=== PATIENT | female | born 1950 | race Caucasian/White ===

== ENCOUNTER 2017-01-23 05:44 | Day surgery (SDC) | payer OTHER ==
[2017-01-22 15:38] VITALS: BMI 40.3
[2017-01-23] VITALS (8 sets, daily range): BP systolic 91–143; BP diastolic 51–75; PULSE 53–66; RESP 16–43; Ht 157.5 cm; Wt 101.5 kg
[~2017-01-23] VITALS: Ht 157.5 cm; Wt 101.5 kg
[~2017-01-23 05:44] MED LIST: ASPI-664 PO; CHOL100062 PO; HYD25 PO; LOSARTAN POTASSIUM PO
[2017-01-23] MEDS ORDERED: LOSA25TA5 PO (06:49)
[2017-01-23] MEDS ORDERED: BUPIVACAINE 0.25% (MPF) 30 ML INJ ONE (06:52)
[2017-01-23] MEDS ORDERED: MUPIROCIN 2% 15 GM CR ONE (06:53)
[2017-01-23] MEDS ORDERED: GENTAMICIN 80 MG INJ ONE (06:53)
[2017-01-23] MEDS ORDERED: CEFAZOLIN 1 GM INJ ONE (07:00)
[2017-01-23] MEDS ORDERED: CEFAZOLIN 2 GM/50 ML (PMX) 50 ML IVPB SCH (07:00)
[2017-01-23] MEDS ORDERED: LACTATED RINGER'S 1,000 ML IV* SCH (07:00)
[2017-01-23] MEDS ORDERED: MIDAZOLAM 1 MG/ML 2 ML INJ ONE (07:25)
[2017-01-23] MEDS ORDERED: PROPOFOL 40 ML ONE (07:25)
[2017-01-23] MEDS ORDERED: FENTAnyl 50 MCG/ML VIAL ONE (07:25)
--- NOTE | 2017-01-23 07:28 | HPN ---
Date/Time of Note Date/Time of Note DATE: 01/23/17 TIME: 07:27 Interval H&P Admission Note Pt. seen H&P reviewed: No system changes PEDRO ZAPIEN MD Jan 23, 2017 07:28
[2017-01-23] MEDS: LIDOCAINE 1%/EPI 30 ML INJ ONE ×2 (07:42)
[2017-01-23] MEDS ORDERED: POLYMYXIN/BACITRACIN 1L IRRIG IRR ONE (07:42)
[2017-01-23] MEDS ORDERED: KETOROLAC 30 MG INJ ONE (08:08)
[2017-01-23] MEDS ORDERED: EPHEDrine SULFATE 50 MG/5 ML SYG ONE (08:08)
[2017-01-23] MEDS ORDERED: DEXAMETHASONE 4 MG/ML 1 ML INJ ONE (08:08)
[2017-01-23] MEDS ORDERED: METOCLOPRAMIDE 10 MG INJ ONE (08:08)
[2017-01-23] MEDS ORDERED: ONDANSETRON 4 MG INJ ONE (08:08)
[2017-01-23] MEDS ORDERED: POLYMYXIN/BACITRACIN 1L IRRIG ONE (08:15)
[2017-01-23] MEDS ORDERED: PHENYLephrine (100 MCG/ML) 5ML SYG ONE (08:15)
[2017-01-23] MEDS ORDERED: HYDROmorphONE (0.2 MG/ML) 10ML SYG IV PRN ×2 (08:30)
[2017-01-23] MEDS ORDERED: ONDANSETRON 4 MG INJ IV PRN (08:30)
[2017-01-23] MEDS ORDERED: LABETALOL HCL 20MG INJ IV PRN (08:30)
[2017-01-23] MEDS ORDERED: hydrALAzine 20 MG INJ IV PRN (08:30)
[2017-01-23] MEDS ORDERED: morphine (1 MG/ML) 10ML SYRINGE IV PRN ×2 (08:30)
[2017-01-23] MEDS ORDERED: PROPOFOL 20 ML ONE ×2 (09:00)
[2017-01-23] MEDS ORDERED: MUPIROCIN 2% 15 GM CR TOP ONE (09:08)
--- NOTE | 2017-01-23 10:08 | OPR ---
DATE OF OPERATION: 01/23/2017 PREOPERATIVE DIAGNOSIS: Squamous cell carcinoma, mid chest, biopsy proven. POSTOPERATIVE DIAGNOSIS: Squamous cell carcinoma, mid chest, biopsy proven. OPERATION PERFORMED: 1. Wide excision of squamous cell carcinoma, mid chest (4.2 x 2.6 cm) with frozen section margin co ntrol. 2. Fasciocutaneous flap reconstruction mid chest. 3. Application of full-thickness skin graft from right base of neck to mid chest. SURGEON: Pedro Person MD ROOFING APPRENTICE: None. ANESTHESIA: Monitored anesthesia care with intravenous sedation. ANESTHESIOLOGIST: Jimmie Chavez MD Local anesthetic infiltration for pain management, 40 mL of 0.5% lidocaine, 0.125% Marcaine and 1:20 0,000 epinephrine solution. ESTIMATED BLOOD LOSS: 5 mL DRAINS: None. DRESSING: Bactroban cream, dry sterile dressing, tie-over dressing on skin graft and Tegaderm. SPECIMENS: Squamous cell carcinoma, mid chest, marked at 12 o'clock (superior). FINDINGS: Frozen section report per Ludin Poon MD, pathologist showed all margins free of tumor. OPERATIVE PROCEDURE: The patient received 2 grams of intravenous Ancef as preoperative antibiotic. Also with the patient in sitting position in the holding area, markings were made for the planned p rocedure. In the operating room with the patient in supine position, following adequate monitoring and induction of adequate level of monitored anesthesia care with intravenous sedation by Dr. Lizet morrissey, anesthesiologist, adequate amount of local anesthetic solution was injected at the base and perip mirta of operative areas in order to provide pain control. After surgical pause and routine prep and drape, operation was started by wide excision of the tumor from the mid chest, positioned over the superior aspect of the sternum. This specimen was marked at 12 o'clock position which represented t he most cephalad segment of the specimen and was handed to ____, pathologist, for frozen section and permanent slides. Following report of frozen section, the operative area was irrigated using c opious amount of triple antibiotic solution. At this time, primary intention was noted to cause sig nificant tension and deformity and severe concern for postoperative dehiscence due to size, location and direction of the defect. Therefore, a double advancement fasciocutaneous flap was elevated and advanced and inset using interrupted and continuous stitches of 3-0 Monocryl that decreased the siz e of the defect to less than half of its original size. The remainder of the defect was successfull y reconstructed using a full-thickness skin graft harvested from the right base of neck that was def atted. Vent holes were placed in position using interrupted and continuous stitches of 4-0 Monocryl . A tie-over dressing was placed over the skin graft followed by dressing as mentioned above. All counts were checked and reported to be correct prior to closures. The patient tolerated this proced ure very well and left the operating room to the recovery room awake, stable and in comfortable sati sfactory and stable condition. Dictated By: PEDRO FATIMA/JOSEPH Conf#: [id number] DID#: [id number]
[2017-01-23] MEDS ORDERED: OXYCODONE/ACETAMINOPHEN (5/325) TAB PO PRN (14:00)
== END 2017-01-23 11:27 | disposition home or self-care (01) ==
LOC: SDS 05:44
PROVIDERS: ATTEND Plastic Surgery
DX: L57.8 Other skin changes due to chronic exposure to nonionizing radiation (principal); I10 Essential (primary) hypertension; E66.01 Morbid (severe) obesity due to excess calories; Z68.41 Body mass index [BMI] 40.0-44.9, adult
CPT/HCPCS: 14000; 88307; 88331; J0690; J1580; J2250; J2370; J3010; Z7512; Z7610; J1100; J1885; J2405; J2765